=== PATIENT | female | born 1940 | race Caucasian/White ===

== ENCOUNTER → 2020-02-08 | Outpatient (CLI) | payer MEDICARE | END | disposition home or self-care (01) | LOC: CFH 10:50 | PROVIDERS: ATTEND Family Medicine | DX: Z12.31 Encounter for screening mammogram for malignant neoplasm of breast (principal); N63.0 Unspecified lump in unspecified breast | CPT/HCPCS: 77063; 77067 ==

== ENCOUNTER 2020-03-13 14:50 | Outpatient (CLI) | payer MEDICARE ==
[~2020-03-13 14:50] MED LIST: LIDOCAINE-MPF 1%, 5ML ONE; ROPivacaine/PF 0.2%, 10 ML ONE; TRIAMCINOLONE ACETONIDE 40 MG/ML, 1ML ONE
[2020-03-13] MEDS ORDERED: OMNIPAQUE 300 MG/ML, 10ML VIAL ONE (15:00)
== END 2020-03-13 23:59 | disposition home or self-care (01) ==
LOC: RAD 14:50
PROVIDERS: ATTEND Nurse Practitioner
DX: M19.071 Primary osteoarthritis, right ankle and foot (principal)
CPT/HCPCS: 20605; 77002; J2795; J3301; Q9967

== ENCOUNTER 2020-10-07 12:13 | Outpatient (CLI) | payer MEDICARE ==
[2020-10-07] MEDS ORDERED: LIDOCAINE 1%, 10ML ONE (12:47)
[2020-10-07] MEDS ORDERED: SODIUM BICARBONATE 4.2%, 5ML ONE (12:47)
[2020-10-07] MEDS ORDERED: ROPivacaine/PF 0.2%, 10 ML ONE (12:47)
[2020-10-07] MEDS ORDERED: OMNIPAQUE 300 MG/ML, 10ML VIAL ONE (13:00)
[2020-10-07] MEDS ORDERED: TRIAMCINOLONE ACETONIDE 40 MG/ML, 1ML ONE (13:07)
== END 2020-10-07 23:59 | disposition home or self-care (01) ==
LOC: RAD 12:13
PROVIDERS: ATTEND Nurse Practitioner
DX: M19.071 Primary osteoarthritis, right ankle and foot (principal)
CPT/HCPCS: 20605; 77002; J2795; J3301; Q9967